=== PATIENT | female | born 1990 | race Caucasian/White ===

== ENCOUNTER 2018-12-12 09:04 | Day surgery (SDC) | payer OTHER ==
[2018-12-05 09:58] LABS: HEMATOCRIT 41.2 % (36.0-47.0); HEMOGLOBIN 14.3 g/dL (12.0-15.5); MEAN CORPUSCULAR HGB CONC 34.8 g/dL (32.0-36.0); MEAN CORPUSCULAR VOLUME 89 fl (80-97); PLATELET COUNT 174 10^3/uL (150-450); RED BLOOD COUNT 4.62 10^6/uL (3.72-5.28); RED CELL DISTRIBUTION WIDTH 12.7 % (11.5-14.0); WHITE BLOOD COUNT 3.8 10^3/uL (4.0-10.5)
[2018-12-05 10:22] LABS: ANION GAP 7 (5-19); BLOOD UREA NITROGEN 15 mg/dL (7-20); CALCIUM 9.9 mg/dL (8.4-10.2); CARBON DIOXIDE 28 mmol/L (22-30); CHLORIDE 105 mmol/L (98-107); GLUCOSE 71 mg/dL (75-110); POTASSIUM 4.5 mmol/L (3.6-5.0); SODIUM 140.3 mmol/L (137-145)
[~2018-12-12 09:04] MED LIST: CEFAZOLIN 1 GM/D5W RTU 1 GM/50 ML RTUPB IV PRN; LACTATED RINGERS 1000 ML IV PRN; LIDOCAINE 0.5% INJ-PF (5 MG/ML) 50 ML SDV SUBCUT PRN; RINGERS SOLUTION,LACTATED 1,000 ML IV PRN
[2018-12-12] MEDS ORDERED: CEFAZOLIN 1 GM/D5W RTU 1 GM/50 ML RTUPB IV ONE (09:09)
[2018-12-12] MEDS ORDERED: FENTANYL CITRATE INJ/PF 100 MCG/2 ML AMPUL ONE (09:57)
[2018-12-12] MEDS ORDERED: KETOROLAC TROMETHAMINE 60 MG/2 ML SDV ONE ×2 (09:57→13:53)
[2018-12-12] MEDS ORDERED: BUPIVACAINE INJ/PF LIPOSOME/PF 266 MG/20 ML SDV ONE (09:58)
[2018-12-12] MEDS ORDERED: DEXAMETHASONE SOD PHOSPHATE INJ 4 MG/1 ML VIAL ONE (09:58)
[2018-12-12] MEDS ORDERED: BUPIVACAINE HCL 0.25 % INJ/PF (2.5 MG/1 ML) 30 ML VIAL ONE (09:58)
[2018-12-12] MEDS ORDERED: ONDANSETRON HCL INJ/PF 4 MG/2 ML SDV ONE (09:58)
[2018-12-12] MEDS ORDERED: PROPOFOL INJ 200 MG/20 ML VIAL IV ONE (09:58)
[2018-12-12] MEDS ORDERED: ACETAMINOPHEN 1,000 MG/100 ML RTUPB IV ONE (09:58)
[2018-12-12] MEDS ORDERED: MIDAZOLAM 2 MG/2 ML INJ ONE (09:58)
[2018-12-12] MEDS ORDERED: PROMETHAZINE HCL INJ 25 MG/1 ML VIAL ONE (09:58)
[2018-12-12] MEDS ORDERED: FENTANYL CITRATE INJ/PF 100 MCG/2 ML AMPUL IV PRN ×3 (10:25)
[2018-12-12] MEDS ORDERED: MEPERIDINE HCL/PF INJ 25 MG/1 ML DISP.SYRIN IV PRN (10:25)
[2018-12-12] MEDS ORDERED: MORPHINE SULFATE 10 MG/ML INJ IV PRN (10:25)
[2018-12-12] MEDS ORDERED: PROMETHAZINE HCL INJ 25 MG/1 ML VIAL IV PRN ×2 (10:25)
[2018-12-12] MEDS ORDERED: DIPHENHYDRAMINE HCL 50 MG/ML VIAL IV PRN (10:25)
--- NOTE | 2018-12-12 11:42 | Discharge Summary ---
Discharge Summary (SDC) - Discharge Final Diagnosis: Abdominal wall hernias Date of Surgery: 12/12/18 Discharge Date: 12/12/18 Condition: Good Treatment or Instructions: Leave abdominal wall dressing on for 3 days; use abdominal binder when upright, not while sleeping. Prescription for Toradol provided. Referrals: TATUM LLANES MD [Primary Care Provider] - Discharge Diet: As Tolerated Discharge Activity: Activity As Tolerated Home Care Assistance: None Needed Report the Following to Your Physician Immediately: Shortness of Breath, Increase in Pain, Fever over 101 Degrees
--- NOTE | 2018-12-12 11:51 | Operative Report ---
Operative Report DATE OF SURGERY: 12/12/18 PREOPERATIVE DIAGNOSIS: Supraumbilical and umbilical hernias POSTOPERATIVE DIAGNOSIS: Same OPERATION: Abdominal wall exploration, repair of supraumbilical, and umbilical hernias using Bard ventralex ST 6.4 cm diameter mass in the extraperitoneal position SURGEON: CRISTHIAN ESPINOZA ANESTHESIA: GA TISSUE REMOVED OR ALTERED: Fragments of hernia sacs disposed of COMPLICATIONS: None ESTIMATED BLOOD LOSS: Scant INTRAOPERATIVE FINDINGS: See below PROCEDURE: The patient was seen in the preop holding area the umbilicus was marked by Dr. Espinoza. She was then taken to the main operating room where general anesthesia was induced. The abdomen was exposed, prepped and draped in sterile fashion Surgical plan surgical timeout were conducted. The findings were significant for scar above the umbilicus consistent with a skin piercing. The skin above and around the umbilicus was anesthetized with quarter percent Marcaine. Approximately 4 cm incision was made above the umbilicus, then extended to the right of the umbilicus going from the 12:00 to t he 7 o'clock position. This enabled us to elevate the umbilical and umbilical skin in the lateral flaps. This was accomplished with sharp dissection. We eventually got down to 2 hernias one above the umbilicus, small approximately centimeter diameter, and umbilical hernia proper. Hernia sac elements were scarred, debrided, disposed of. I was able to now identify the retroperitoneum, which was from the transversalis fascia in a circumferential fashion. A very small hole in the peritoneum was made with a 3-0 Vicryl suture. Once this was accomplished, I was satisfied that we had a nice extraperitoneal pocket to place the mesh. We brought onto the field a non- Bard ventralex ST 6.4 cm diameter mesh. The placement tail was amputated from the mesh, and we now placed 4-0 Vicryl sutures in a loop fashion in the 12, 3, 6, 9:00 positions, approximately 4 cm away from the fascial edge defect. We now brought all the sutures up into position, thereby talking the mesh into the retroperitoneal pocket. We were careful to ensure the mesh was splayed out without folding. Suture was pulled up and not secured. I now closed the previously opened, irregular fascial edge in a triangulated fashion with multiple interrupted 0 Vicryl sutures. This effectively covered the mesh entirely. The umbilicus, surrounding skin all packs down to the anterior abdominal wall with 3-0 Vicryl, dermis closed with 2-0 Vicryl, skin with benzoin Steri-Strips. Another 20 cc of quarter percent Marcaine injected into the subcutaneous space. A bulky dressing was applied with 4 x 4's and tape. Patient tolerated procedure well, extubated, taken recovery in stable condition.
[2018-12-12] MEDS ORDERED: OXYCODONE-ACETAMINOPHEN 5-325 MG TABLET PO PRN (12:39)
[2018-12-12 13:53] VITALS: BP 93/55
[2018-12-12] MEDS ORDERED: SUCCINYLCHOLINE CHLORIDE INJ 200 MG/10 ML VIAL ONE (13:53)
[2018-12-12] MEDS ORDERED: ROCURONIUM BROMIDE INJ 50 MG/5 ML VIAL IV ONE (13:53)
== END 2018-12-12 13:45 | disposition home or self-care (01) ==
LOC: OROUT 09:04
PROVIDERS: ATTEND Surgery
DX: K42.9 Umbilical hernia without obstruction or gangrene (principal); Z90.5 Acquired absence of kidney; M41.9 Scoliosis, unspecified
CPT/HCPCS: 36415; 85027; 81025; 80048; 49560; 49568; C1781; J2250; J0690; J3490; J1100; J1885; J3010; J2550; J0330; J2405; J2704; J0131; 750; C9290